=== PATIENT | male | born 1950 | race Caucasian/White ===

== ENCOUNTER 2018-01-29 08:35 | Emergency (ER) | payer OTHER ==
--- NOTE | 2018-01-29 08:40 | EDPHY ---
H & P Time Seen by Provider: 01/29/18 08:39 HPI/ROS: CHIEF COMPLAINT: Right groin pain x2 weeks HISTORY OF PRESENT ILLNESS: 67-year-old man has a history of renal colic. No history of trauma. He has had a burning sensation in his right groin radiating to his right back for the last 2 weeks. It is intermittent sometimes present sometimes not there at all. Not associated with urinary symptoms or testicular pain. No recent injury or trauma. He says the bit worse with bending over. No skin rash or fever. He saw his primary care provider earlier this week and she checked his urine and told him it might be muscular and she recommended that he get a massage. At the massage he did have severe pain with point tenderness on his right lower back. Presents today with continued symptoms, specifically concerned about a hernia and consequences from that. REVIEW OF SYSTEMS: Eye: no change in vision ENT: no sore throat Cardiac: no chest pain or syncope Pulmonary: no cough or SOB Abdomen: no vomiting, diarrhea, abdominal pain Musculoskeletal: HPI Skin: no rash in the area of pain Neuro: no headache , no weakness or numbness in extremities Constitutional: no fever : no urinary symptoms, no incontinence, no hematuria A comprehensive 10 point review of systems is otherwise negative aside from elements mentioned in the history of present illness. PAST MEDICAL HISTORY: History and physical by Neurosurgery dated 04/14/2012 personally reviewed includes hypertension, hypercholesterolemia, subdural hematoma. Admission on that date for seizure thought secondary to the subdurals. Kidney stones, right knee surgery. Social history: , nonsmoker General Appearance: Alert and conversant, cooperative. Eyes: No scleral icterus. ENT, Mouth: Normal mucous membranes. Respiratory: Normal respiratory effort, breath sounds equal, lungs are clear to auscultation. Cardiovascular: Regular rate and rhythm. Gastrointestinal: Abdomen is soft and non tender. No pulsatile mass and normal femoral pulses bilaterally. Normal male without evidence of testicular swelling or scrotal abnormality or hernia. Neurological: Alert, face symmetric, normal motor and sensory in extremities. Ambulatory, toes downgoing bilaterally, 2+ patellar reflexes since symmetric, straight leg raising negative bilaterally. Skin: Warm and dry, no rashes. Specifically he has 2 1 mm area as which look like folliculitis or inflamed hair follicles on the right side but he also has the same present on the left side and I do not appreciate any vesicles or blisters or evidence of zoster in any of the areas where he has symptoms. He does not have hyperesthesia. Musculoskeletal: No peripheral edema. No midline thoracic or lumbar spine tenderness, no pain or tenderness in the right sciatic notch, pelvis is stable. Psychiatric: Not agitated. Emergency Department course/MDM: Urine microscopic. Patient had CT abdomen and pelvis discussed and consented to evaluate for renal colic, reason is that after 2 weeks of symptoms would be important make the diagnosis if he has obstruction. Clinically unlikely to be shingles without definite rash developing after 2 weeks. Could be muscular or spinal nerve root but does not have neurologic deficit. Symptomatic treatment and referral back to primary care. No evidence of hernia Constitutional: Initial Vital Signs Temperature (C) 36.4 C 01/29/18 08:44 Heart Rate 68 01/29/18 08:44 Respiratory Rate 16 01/29/18 08:44 Blood Pressure 146/72 H 01/29/18 08:44 O2 Sat (%) 94 01/29/18 08:44 O2 Delivery Mode Room Air Allergies/Adverse Reactions: No Known Allergies Allergy (Unverified 04/14/12 14:26) Home Medications: Medication Instructions Recorded Aspirin [Aspirin 81mg (OTC)] 81 mg PO DAILY 04/14/12 Cholecalciferol Vit D3 [Vitamin D 1,000 units PO DAILY 04/14/12 1000 units (OTC)] Glucosam/Chondr/Collagn/Hyalur 1 cap DAILY 04/14/12 [Glucosamine & Chondroitin Cap] Pharmacy Complete 04/14/12 04/14/12 Take 1 Med He Cannot Remember 04/14/12 Amlodipine Besylate 01/29/18 Lasix 01/29/18 Losartan Potassium 01/29/18 Rosuvastatin Calcium 01/29/18 Medical Decision Making - Diagnostics Imaging Results: Imaging Impressions Abdomen/Pelvis CT 01/29/18 09:06 Impression: 1. Bilateral nonobstructive nephrolithiasis, right greater than left with bilateral perinephric stranding. 2. No ureterolithiasis or hydronephrosis. 3. L4-L5 severe central canal stenosis secondary to degenerative grade 1 anterolisthesis, severe degenerative disk disease, and facet arthropathy. 4. Mild constipation without bowel obstruction. 5. Atherosclerotic aorta without aneurysm Attention: This CT examination is specifically designed to evaluate patients who are clinically suspected of having acute obstructive uropathy. This examination does not use radiographic contrast, and as such, provides only a limited evaluation of the abdomen, pelvis, and retroperitoneum. If there is further clinical suspicion for pathological conditions other than obstructive uropathy, a complete CT evaluation of the abdomen and pelvis utilizing intravenous, oral, and rectal contrast should be considered. Findings and recommendations discussed with emergency department physician, Miky Chaudhary MD at 0938 hours on January 29, 2018. Final report concurs with initial preliminary interpretation. CT per Isuani has renal stones, but no ureteral stone or hydronephrosis, 935am. Central canal stenosis, no hernia, normal appendix. Imaging: Discussed imaging studies w/ order desk caller Radiologist Differential Diagnosis: Differential considered including but not limited to inguinal hernia, muscular, nerve root irritation or lumbar radiculopathy, rhabdomyolysis, renal colic, UTI , shingles. - Data Points Laboratory Results: 01/29/18 09:10 Urine Color YELLOW Urine Appearance CLEAR Urine pH 7.0 (5.0-7.5) Ur Specific Ada 1.009 (1.002-1.030) Urine Protein NEGATIVE (NEGATIVE) Urine Ketones NEGATIVE (NEGATIVE) Urine Blood NEGATIVE (NEGATIVE) Urine Nitrate NEGATIVE (NEGATIVE) Urine Bilirubin NEGATIVE (NEGATIVE) Urine Urobilinogen NEGATIVE EU EU (0.2-1.0) Ur Leukocyte Esterase NEGATIVE (NEGATIVE) Urine RBC 1-3 /hpf /hpf (0-3) Urine WBC NONE SEEN /hpf /hpf (0-3) Ur Epithelial Cells NONE SEEN /lpf /lpf (NONE-1+) Hyaline Casts 1-5 /lpf /lpf (0-1) Urine Mucus TRACE /lpf /lpf (NONE-1+) Urine Glucose NEGATIVE (NEGATIVE) Departure - Departure Disposition: Home, Routine, Self-Care Clinical Impression: Right groin pain Condition: Good Instructions: Groin Pain (ED) Additional Instructions: No hernia or kidney stone seen on CT scan. You do have some central spinal canal stenosis in the lower lumbar region, you could have referred pain from an irritated spinal nerve root as we discussed. Referrals: Odalys Amin PA [Primary Care Provider] - 2-3 days, call for appt.
[2018-01-29 08:47] VITALS: BP 146/72; PULSE 68; RESP 16; TEMP 97.5; O2SAT 94
== END 2018-01-29 10:45 | disposition home or self-care (01) ==
DX: R10.30 Lower abdominal pain, unspecified (principal); I10 Essential (primary) hypertension; Z79.82 Long term (current) use of aspirin

== ENCOUNTER → 2019-05-22 | Outpatient (CLI) | payer OTHER | LOC: BMCIMAGING 11:26 ==